=== PATIENT | male | born 1940 | race Caucasian/White ===

== ENCOUNTER 2022-02-10 11:55 | Inpatient (IN) ==
[2022-02-10 13:01] LABS: ABS Lymphocytes 0.5 10^3/ul (1.0-4.8); ABS Monocytes 1.1 10^3/ul (0-0.8); ABS Neutrophils 7.2 10^3/ul (1.5-7.7); Eosinophil % 0.3 %; Hematocrit 46 % (42-52); Hemoglobin 15.5 g/dL (14.0-18.0); Lymphocyte % 5.7 %; Mean Corpuscular HGB Conc 34 g/dL (31-36); Mean Corpuscular Hemoglobin 32 pg (27-31); Mean Corpuscular Volume 94 fL (80-94); Mean Platelet Volume 8.3 fL (7.4-10.4); Platelet Count 170 10^3/uL (150-450); Red Cell Distribution Width 13 % (10-15); White Blood Count 8.9 10^3/uL (3.5-10.8)
[2022-02-10] MEDS ORDERED: Haloperidol 5 mg/ml SDV IV/IM 5 MG/ML AMP IM ONE ×2 (13:10→13:29)
[2022-02-10 13:43] LABS: Albumin 4.2 g/dL (3.2-5.2); Albumin/Globulin Ratio 2.1 (1-3); Calcium 9.3 mg/dL (8.6-10.3); Potassium 4.4 mmol/L (3.5-5.0); Total Bilirubin 2.4 mg/dL (0.2-1.0); Total Protein 6.2 g/dL (6.4-8.9)
[2022-02-10 14:33] LABS: High Sensitivity Troponin 1 Hr 9 pg/mL (<20)
[2022-02-10 15:42] LABS: Urine Appearance Clear; Urine Bilirubin Negative (Negative); Urine Color Yellow; Urine Glucose Negative (Negative); Urine Ketones Negative (Negative); Urine Specific Gravity 1.025 (1.005-1.030)
[2022-02-10 15:43] LABS: Urine Nitrite Negative (Negative); Urine Protein Trace (Negative); Urine Urobilinogen 1.0 (Negative) (Negative); Urine pH 6.5 (5.0-9.0)
[2022-02-10 15:49] LABS: Urine Bacteria 1+ (Absent); Urine Red Blood Cell 3+(>10/hpf) (Absent); Urine White Blood Cell 1+(6-10/hpf) (Absent)
[2022-02-10] MEDS ORDERED: Remdesivir 100 mg Vial 200 MG in NS 0.9% 250 ml 210 ML IV ONE (16:45)
[2022-02-10] MEDS ORDERED: Ondansetron 4 mg VIAL 2 MG/ML 2 ml VIAL IV PRN (16:49)
[2022-02-10] MEDS ORDERED: cefTRIAXone 1 gm/50 mL D5W 1 GM/50 ML BAG IV ONE (16:56)
[2022-02-10] MEDS ORDERED: NS 0.9% 1000 ml BAG 1,000 ML IV SCH (17:00)
[2022-02-10] MEDS ORDERED: Enoxaparin 40 MG/0.4 ML SYR SUBCUT SCH (17:00)
[2022-02-10] MEDS ORDERED: Acetaminophen IV 1 GM/100ML 1,000 MG/100 ML BAG IV ONE (22:46)
[2022-02-11 05:45] LABS: ABS Lymphocytes 0.7 10^3/ul (1.0-4.8); ABS Monocytes 1.4 10^3/ul (0-0.8); ABS Neutrophils 6.7 10^3/ul (1.5-7.7); Hematocrit 41 % (42-52); Hemoglobin 14.3 g/dL (14.0-18.0); Lymphocyte % 8.1 %; Mean Corpuscular HGB Conc 35 g/dL (31-36); Mean Corpuscular Hemoglobin 32 pg (27-31); Mean Corpuscular Volume 92 fL (80-94); Platelet Count 144 10^3/uL (150-450); Red Blood Count 4.52 10^6 /uL (4.18-5.48); Red Cell Distribution Width 13 % (10-15); White Blood Count 8.9 10^3/uL (3.5-10.8)
[2022-02-11 06:35] LABS: Albumin 3.6 g/dL (3.2-5.2); Calcium 8.3 mg/dL (8.6-10.3); Globulin 1.8 g/dL (2-4); Potassium 3.9 mmol/L (3.5-5.0); Total Bilirubin 1.9 mg/dL (0.2-1.0); Total Protein 5.4 g/dL (6.4-8.9); eGFR CKD-EPI 88.5 (>60)
[2022-02-11] MEDS: SPIRIVA Respimat (tiotropium) 2.5 mcg/inh Inhaler INH SCH (12:56)
[2022-02-11] MEDS: Nystatin SUSPENSION 100,000 UNITS/ML UDC PO SCH ×3 (13:53→20:23)
[2022-02-11 16:49] LABS: Ferritin 48.9 ng/mL (24-336)
[2022-02-11] MEDS: cefTRIAXone 1 gm/50 mL D5W 1 GM/50 ML BAG IV SCH (18:32)
[2022-02-11] MEDS: Remdesivir 100 mg Vial 100 MG in NS 0.9% 250 ml 230 ML IV SCH (22:39)
[2022-02-12] MEDS: SPIRIVA Respimat (tiotropium) 2.5 mcg/inh Inhaler INH SCH (06:59)
[2022-02-12] MEDS: Nystatin SUSPENSION 100,000 UNITS/ML UDC PO SCH ×4 (10:29→21:11)
[2022-02-12 16:13] LABS: PCO2 Arterial 30 mmHg (35-45); PO2 Arterial 87 mmHg (80-100)
[2022-02-12] MEDS: cefTRIAXone 1 gm/50 mL D5W 1 GM/50 ML BAG IV SCH (18:30)
[2022-02-12] MEDS: Remdesivir 100 mg Vial 100 MG in NS 0.9% 250 ml 230 ML IV SCH (22:14)
[2022-02-13] MEDS: SPIRIVA Respimat (tiotropium) 2.5 mcg/inh Inhaler INH SCH ×2 (07:24→07:27)
[2022-02-13] MEDS: Nystatin SUSPENSION 100,000 UNITS/ML UDC PO SCH ×4 (09:46→21:18)
[2022-02-13] MEDS: NS 0.9% w/ 40 Meq KCL 1000 ML 1,000 ML IV SCH ×2 (10:03→22:56)
[2022-02-13] MEDS: Enoxaparin 100 MG/ML SYR SUBCUT SCH ×2 (12:37→22:58)
[2022-02-13] MEDS: Metoprolol Tartrate 5 mg VIAL 5 ml VIAL (1 mg/ml) IV SCH ×2 (16:26→22:52)
[2022-02-13] MEDS ORDERED: Acetaminophen IV 1 GM/100ML 1,000 MG/100 ML BAG IV PRN (17:04)
[2022-02-13] MEDS ORDERED: levETIRAcetam 1000MG IVPREMIX 1,000 MG/100 ML BAG IVPB ONE (17:24)
[2022-02-13] MEDS: cefTRIAXone 1 gm/50 mL D5W 1 GM/50 ML BAG IV SCH (18:31)
[2022-02-13] MEDS: Remdesivir 100 mg Vial 100 MG in NS 0.9% 250 ml 230 ML IV SCH (21:11)
[2022-02-13 21:50] LABS: Urine Appearance Cloudy; Urine Bacteria 1+ (Absent); Urine Blood 3+ (Large) (Negative); Urine Color Red; Urine Glucose Negative (Negative); Urine Ketones 3+ (80mg/dL) (Negative); Urine Protein 3+ (>=300 mg/dL) (Negative); Urine Red Blood Cell 3+(>10/hpf) (Absent); Urine Specific Gravity 1.025 (1.002-1.030); Urine White Blood Cell Absent (Absent); Urine Yeast Present (Absent)
[2022-02-13 21:51] LABS: Urine Nitrite Negative (Negative); Urine Urobilinogen 1.0 (Negative) (Negative)
[2022-02-14] MEDS: Metoprolol Tartrate 5 mg VIAL 5 ml VIAL (1 mg/ml) IV SCH ×4 (04:37→23:54)
[2022-02-14 06:44] LABS: ABS Eosinophils 0.1 10^3/ul (0-0.6); ABS Monocytes 0.9 10^3/ul (0-0.8); ABS Neutrophils 5.8 10^3/ul (1.5-7.7); Eosinophil % 1.5 %; Hematocrit 42 % (42-52); Hemoglobin 14.6 g/dL (14.0-18.0); Lymphocyte % 13.3 %; Mean Corpuscular HGB Conc 35 g/dL (31-36); Mean Corpuscular Hemoglobin 32 pg (27-31); Mean Corpuscular Volume 92 fL (80-94); Platelet Count 162 10^3/uL (150-450); Red Blood Count 4.57 10^6 /uL (4.18-5.48); Red Cell Distribution Width 14 % (10-15); White Blood Count 7.8 10^3/uL (3.5-10.8)
[2022-02-14 07:26] LABS: Calcium 8.2 mg/dL (8.6-10.3); Magnesium 1.9 mg/dL (1.9-2.7); eGFR CKD-EPI 97.6 (>60)
[2022-02-14] MEDS: SPIRIVA Respimat (tiotropium) 2.5 mcg/inh Inhaler INH SCH (08:13)
[2022-02-14] MEDS ORDERED: Influenza vaccine *QUAD* *2022-23* 0.5 ML SYRINGE IM ONE (09:00)
[2022-02-14] MEDS: Nystatin SUSPENSION 100,000 UNITS/ML UDC PO SCH ×4 (09:16→20:42)
[2022-02-14] MEDS: NS 0.9% w/ 40 Meq KCL 1000 ML 1,000 ML IV SCH (10:38)
[2022-02-14] MEDS: Enoxaparin 100 MG/ML SYR SUBCUT SCH (12:37)
[2022-02-14] MEDS ORDERED: Piperacillin/Tazobac ADVAN 3.375 GM in NS 0.9% 100 ml BAG 100 ML IV ONE (14:07)
[2022-02-14] MEDS ORDERED: Zosyn per Pharmacy NOTE FOLLOW UP SCH (15:00)
[2022-02-14 17:00] LABS: TSH Ultra Thyroid Stim Horm 1.26 mcIU/mL (0.34-5.60)
[2022-02-14] MEDS: Remdesivir 100 mg Vial 100 MG in NS 0.9% 250 ml 230 ML IV SCH (21:06)
[2022-02-14] MEDS: ZOSYN 3.375 GM Q6H - Intermittant 30 min Infusion IV SCH (23:57)
[2022-02-15] MEDS: Enoxaparin 100 MG/ML SYR SUBCUT SCH ×3 (00:05→22:47)
[2022-02-15] MEDS: NS 0.9% w/ 40 Meq KCL 1000 ML 1,000 ML IV SCH ×2 (02:02→14:33)
[2022-02-15] MEDS: Metoprolol Tartrate 5 mg VIAL 5 ml VIAL (1 mg/ml) IV SCH ×4 (04:16→22:47)
[2022-02-15] MEDS: ZOSYN 3.375 GM Q6H - Intermittant 30 min Infusion IV SCH ×2 (06:11→12:21)
[2022-02-15] MEDS: SPIRIVA Respimat (tiotropium) 2.5 mcg/inh Inhaler INH SCH (08:43)
[2022-02-15] MEDS: Nystatin SUSPENSION 100,000 UNITS/ML UDC PO SCH ×4 (10:09→22:31)
[2022-02-15] MEDS ORDERED: Morphine 2 MG/ML SYRINGE IV PRN (10:32)
[2022-02-15] MEDS ORDERED: LORazepam 2 mg VIAL 1 ml IV PUSH PRN (14:48)
[2022-02-15] MEDS ORDERED: Lorazepam PYXIS KEY PRN (14:48)
[2022-02-15] MEDS: Remdesivir 100 mg Vial 100 MG in NS 0.9% 250 ml 230 ML IV SCH (22:46)
[2022-02-15] MEDS: Morphine 2 MG/ML SYRINGE IV PRN (22:56)
[2022-02-16] MEDS: NS 0.9% w/ 40 Meq KCL 1000 ML 1,000 ML IV SCH ×2 (02:19→13:12)
[2022-02-16] MEDS: Metoprolol Tartrate 5 mg VIAL 5 ml VIAL (1 mg/ml) IV SCH ×4 (04:06→21:51)
[2022-02-16] MEDS: SPIRIVA Respimat (tiotropium) 2.5 mcg/inh Inhaler INH SCH ×2 (06:52→13:00)
[2022-02-16 09:17] LABS: Blood Urea Nitrogen 22 mg/dL (6-24); CO2 Carbon Dioxide 17 mmol/L (22-32); Glucose 91 mg/dL (70-100); eGFR CKD-EPI 101.3 (>60)
[2022-02-16] MEDS: Enoxaparin 100 MG/ML SYR SUBCUT SCH (10:30)
[2022-02-16] MEDS: Morphine 2 MG/ML SYRINGE IV PRN ×3 (10:30→21:51)
[2022-02-16] MEDS: Nystatin SUSPENSION 100,000 UNITS/ML UDC PO SCH ×2 (10:40→13:00)
[2022-02-16] MEDS ORDERED: Morphine ORAL CONCENTRATE 5 MG/0.25 ML ORAL.SYRIN SL PRN (13:11)
[2022-02-16] MEDS ORDERED: LORazepam 2 mg VIAL 1 ml IV PUSH PRN (13:12)
[2022-02-16] MEDS: Remdesivir 100 mg Vial 100 MG in NS 0.9% 250 ml 230 ML IV SCH (21:52)
[2022-02-16] MEDS: Acetaminophen IV 1 GM/100ML 1,000 MG/100 ML BAG IV SCH ×2 (21:53→23:19)
[2022-02-17] MEDS: Metoprolol Tartrate 5 mg VIAL 5 ml VIAL (1 mg/ml) IV SCH ×5 (03:25→20:01)
[2022-02-17] MEDS: Morphine 2 MG/ML SYRINGE IV PRN (03:25)
[2022-02-17] MEDS: Acetaminophen IV 1 GM/100ML 1,000 MG/100 ML BAG IV SCH ×4 (06:39→23:10)
[2022-02-17] MEDS ORDERED: Atropine 1% (ORAL/SL) 15 ML BTL SL PRN (07:44)
[2022-02-17 08:55] VITALS: BP 102/62
[2022-02-17] MEDS: Morphine ORAL CONCENTRATE 5 MG/0.25 ML ORAL.SYRIN SL PRN ×3 (12:48→23:10)
[2022-02-18] MEDS: Morphine ORAL CONCENTRATE 5 MG/0.25 ML ORAL.SYRIN SL PRN ×8 (02:31→18:15)
[2022-02-18] MEDS: Metoprolol Tartrate 5 mg VIAL 5 ml VIAL (1 mg/ml) IV SCH ×4 (02:32→20:05)
[2022-02-18] MEDS: Acetaminophen IV 1 GM/100ML 1,000 MG/100 ML BAG IV SCH ×3 (06:20→18:15)
[2022-02-19] MEDS: Morphine ORAL CONCENTRATE 5 MG/0.25 ML ORAL.SYRIN SL PRN ×4 (00:27→20:42)
[2022-02-19] MEDS: Acetaminophen IV 1 GM/100ML 1,000 MG/100 ML BAG IV SCH ×2 (00:32→08:35)
[2022-02-19] MEDS: Metoprolol Tartrate 5 mg VIAL 5 ml VIAL (1 mg/ml) IV SCH ×2 (03:30→08:34)
[2022-02-20] MEDS: Morphine ORAL CONCENTRATE 5 MG/0.25 ML ORAL.SYRIN SL PRN ×5 (02:24→14:06)
[2022-02-21] MEDS ORDERED: Influenza vaccine *QUAD* *2022-23* 0.5 ML SYRINGE IM ONE (09:00)
== END 2022-02-20 16:35 | disposition expired | DRG 177 ==
LOC: ED 11:55 → EDHOLD 16:49 → SUATTDRO 16:49 → MED 02-11 08:03
PROVIDERS: ADMIT Internal Medicine; ATTEND Internal Medicine